=== PATIENT | female | born 1955 | race Caucasian/White ===

== ENCOUNTER → 2016-11-09 07:28 | Outpatient (CLI) | payer MEDICARE, OTHER | END | disposition home or self-care (01) | LOC: D.RAD 07:28 | DX: R13.10 Dysphagia, unspecified (principal) ==

== ENCOUNTER 2017-01-25 05:05 | Inpatient (IN) | payer MEDICARE, OTHER ==
[2017-01-24 12:09] LABS: HEMATOCRIT 34.2 % (36.0-48.0); HEMOGLOBIN 10.7 g/dL (12-16); MCH 24.1 pg (26.0-34.0); MCHC 31.3 g/dL (31.0-37.0); MEAN PLATELET VOLUME 9.1 fL (7.4-10.4); RBC 4.44 10x6/uL (4.00-5.40); RDW 17.3 % (11.5-14.5); WBC 14.6 10x3/uL (4.8-10.8)
[2017-01-24 12:18] LABS: CALC OSMOLALITY 268 mosm/kg (275-300); CALCIUM 9.5 mg/dL (8.5-10.1); CARBON DIOXIDE 22.8 mmol/L (21.0-32.0); CHLORIDE - SERUM 99 mmol/L (98-107); CREATININE - SERUM 0.8 mg/dL (0.6-1.3); GLUCOSE 94 mg/dL (74-106); POTASSIUM - SERUM 3.6 mmol/L (3.5-5.1); SODIUM 135 mmol/L (136-145); UREA NITROGEN 9 mg/dL (7-18); eGFR NON AFRICAN AMERICAN 77 mL/min (90-120)
[~2017-01-25] VITALS: Ht 162.6 cm; Wt 73.2 kg
--- NOTE | ~2017-01-25 | OP ---
PATIENT NAME: WILI CHANG MEDICAL RECORD: [id number] :55 LOCATION:[id number] ADMISSION DATE:01/25/17 SURGEON: FEDERICO MERCADO MD DATE OF OPERATION: 01/25/2017 PREOPERATIVE DIAGNOSES: 1. Type 3 paraesophageal hernia 2. Intractable gastroesophageal reflux. POSTOPERATIVE DIAGNOSES: 1. Type 3 paraesophageal hernia 2. Intractable gastroesophageal reflux. PROCEDURES: 1. Laparoscopic type 3 paraesophageal hernia repair. 2. Laparoscopic Moose fundoplication. SURGEON: Federcio Mercado MD. NETWORK CONSULTANT: RANCHO Houser MD. BLOOD LOSS: Less than 25 cc. ANESTHESIA: General. COMPLICATIONS: None. The risks, possible complications and alternatives to procedure were explained to the patient. She elects to proceed. OPERATIVE COURSE: The patient was conveyed to the operating room electively on 01/25/2017. General anesthesia was induced by anesthesia staff. The abdomen was sterilely prepped and draped. An incision was accomplished within the umbilicus. Utilizing the Optiport device, I entered the peritoneal cavity. Under direct internal vision utilizing a television camera, a 5-mm Juan retractor was placed cephalad. It was placed under the left lateral segment of the liver. I used it to lift the left lateral segment of the liver. An 11-mm trocar was inserted to the left of the umbilicus. A 5-mm trocar was inserted far laterally in the right upper quadrant. Two 5-mm trocars were inserted in the left side of the abdomen. We delivered the stomach from up in the chest. The patient had about 1/2 of her stomach up in the chest. We took down the phrenicoesophageal ligament. This was an extensive dissection up into the mediastinum. We dissected up anterior to the aorta and circumferentially around the esophagus. We did this while lifting up the left atrium. Once I was satisfied with the amount of the esophagus we freed up and the amount of stomach we had been able to pulled down at the abdominal compartment without it retracting up into the chest, we performed the paraesophageal hernia repair. There was still some phrenicoesophageal ligamentous attachments that remained. These were taken down with the Harmonic scalpel. We took down the short gastrics of the upper portion of the stomach as well with the Harmonic scalpel. We excised some adipose tissue as well with Harmonic scalpel. At no time was there any apparent full thickness injury to the stomach. OPERATIVE REPORT [id number] CHARLENEWILI ARZATE While elevating the esophagus, the esophageal repair was carried out with a Stratafix suture utilizing intracorporeal suturing technique. We then completed the Moose fundoplication by bringing the fundus around the back of the esophagus and suturing stomach to esophagus to stomach and then several more sutures were from the fundus of the stomach to the fundus of the stomach anterior to the esophagus. It was a nice floppy wrap. There was no retraction up into the mediastinum. This suturing of the fundoplication was performed with a Prolene Stratafix suture. The 11-mm and 12-mm trocar sites were closed after the Juan retractor was removed. The closure was consistent with 0 Vicryl sutures and the Eddie-Lyndsey suture closure device. All trocars were removed and the abdomen desufflated. A local anesthetic has been used to infiltrate the skin and subcutaneous tissues around the trocar sites. The patient had a good bit of subcutaneous emphysema. Skin incisions were all closed with interrupted intracuticular 3-0 Vicryls except at the umbilicus where the skin was closed with interrupted 4-0 Vicryl Rapide sutures. The patient was then conveyed to post-anesthesia care unit. She still had a good bit of subcutaneous emphysema and I think this will resolve in the next couple of hours. TRANSINT:[id number] Voice Confirmation ID: [id number] DOCUMENT ID: [id number] FEDERICO MERCADO MD CC: [id number] DICTATION DATE: 01/25/172013 COMMUNITY HEALTH ADVISOR: 01/26/17 0151 ADM IN [facility] [address] [place] [address]
--- NOTE | ~2017-01-25 | DS ---
PATIENT:WILI CHANG :55 MEDICAL RECORD: [id number] DISCHARGE SUMMARY ADMISSION DATE: 01/25/17 DISCHARGE DATE: 01/26/17 PREOPERATIVE DIAGNOSES: 1. Grade III paraesophageal hernia. 2. Intractable gastroesophageal reflux disease. PROCEDURE: 1. Laparoscopic third degree paraesophageal hernia repair. 2. Laparoscopic Moose fundoplication. HOSPITAL COURSE: The patient underwent the above operative procedure. Postoperatively, her pain was controlled with a patient-controlled analgesia pump. She was able to tolerate some clear liquids. Discharge instructions were given to the patient verbally by me. She is being dismissed home on Pelican as well as Zofran and she can wear the scopolamine patch for 1 additional day. I will see her in the office in 2-3 weeks. TRANSINT:[id number] Voice Confirmation ID: [id number] DOCUMENT ID: [id number] FEDERICO MERCADO MD CC: [id number] DICTATION DATE: 01/26/17 1615 SH[facility]POINT ADMIN: 01/27/17 0316 DIS IN 01/26/17 [facility] [address] [place] [address]
[~2017-01-25 05:05] MED LIST: ACTIVELLA 1 MG-1 TAB PO; COZAAR50 MG PO; NORVASC10 MG PO; OMEPRAZOLE40 MG PO; PLAQUENIL200 MG PO; SALAGEN5 MG PO; SKELAXIN800 MG PO
[2017-01-25 11:41] VITALS: BP 167/97; BMI 27.7
[2017-01-25 20:17] VITALS: BP 150/80
[2017-01-25 20:32] VITALS: BP 144/81
[2017-01-25 20:47] VITALS: BP 135/69
[2017-01-25 21:02] VITALS: BP 132/65
[2017-01-25 21:32] VITALS: BP 115/64
[2017-01-26 04:00] VITALS: BP 143/85
[2017-01-26 07:45] VITALS: Ht 162.6 cm; Wt 73.2 kg
--- NOTE | 2017-01-26 07:50 | NUR ---
ASSESSMENT COMPLETE. IV TO L WRIST PATENT. NS INFUSING AT 100 CC/HR AND ZOFRAN INFUSING AT 4.7 CC/HR VIA PUMP. LAP SITES X 6 WITH STERI STRIPS INTACT. O2 2L NC IN USE. FAMILY AT BEDSIDE.
[2017-01-26 07:59] VITALS: BP 156/76
--- NOTE | 2017-01-26 08:01 | OP ---
PATIENT NAME: WILI DUMONT MEDICAL RECORD: [id number] :55 LOCATION:[id number] ADMISSION DATE:01/25/17 SURGEON: LESLEE HOPPER MD DATE OF OPERATION: 01/25/2017 SURGEON: Dr. Geovanni Alves. UTILITY REPAIRER: Dr. Leslee Hopper. PREOPERATIVE DIAGNOSIS: Grade III paraesophageal hernia. POSTOPERATIVE DIAGNOSIS: Grade III paraesophageal hernia. PROCEDURE PERFORMED: Laparoscopic paraesophageal hernia repair with laparoscopic Moose fundoplication. OPERATIVE COURSE: I assisted Dr. Alves during the procedure due to complexity of the case. My direct responsibility is for reduction of the paraesophageal hernia. I helped in the dissection of the hernia sac, the closure of the hiatal hernia as well as the closure of the Moose fundoplication specifically. For all further details of the operative note, please see Dr. Alves's operative report for Wili Dumont, . TRANSINT:[id number] Voice Confirmation ID: [id number] DOCUMENT ID: [id number] LESLEE HOPPER MD at 0801 CC: [id number] DICTATION DATE: 01/25/17 1906 MACHINE TRY OUT SETTER: 01/26/17 0100 ADM IN [facility] [id number] [place] [address]
--- NOTE | 2017-01-26 08:24 | NUR ---
OFF FLOOR TO XRAY VIA WC.
--- NOTE | 2017-01-26 11:00 | NUR ---
RESTING QUIETLY IN BED WITH EYES CLOSED. RESP EVEN,NONLABORED.
[2017-01-26 11:46] VITALS: BP 137/77
--- NOTE | 2017-01-26 13:00 | NUR ---
AMBULATED AROUND NURSING UNIT. SITTING UP IN CHAIR. FAMILY AT BEDSIDE.
--- NOTE | 2017-01-26 15:02 | NUR ---
CONTINUES SITTING UP IN CHAIR. RESTING QUIETLY WITH EYES CLOSED. RESP EVEN,NONLABORED.
[2017-01-26] MEDS ORDERED: HYDROCODON-ACE1 EAC7 PO (16:09)
[2017-01-26] MEDS ORDERED: ZOFRAN ODT4 MG/UDTAB PO (16:10)
--- NOTE | 2017-01-26 16:30 | NUR ---
IV REMOVED. CATHETER TIP INTACT. DISCHARGE TEACHING GIVEN TO PATIENT AND . SCRIPTS FOR NORCO AND ZOFRAN GIVEN TO PATIENT.
--- NOTE | 2017-01-26 16:45 | NUR ---
DC'D HOME WITH . ESCORTED TO VEHICLE BY RACE RELATIONS PROFESSOR WITH BELONGINGS.
== END 2017-01-26 16:45 | disposition home or self-care (01) | DRG 328 ==
LOC: D.OPS 05:05 → D.PAN 10:10 → D.OPS 10:10 → D.PAN 11:30 → D.OPS 13:30 → D.MS 19:23 → D.SDCHOLD 19:23 → D.MS 19:59
PROVIDERS: Anesthesiology; ADMIT Surgery
PROC: 0BQR4ZZ (ICD-10-PCS; 2017-01-25)
PROC: 0DV44ZZ Restriction of Esophagogastric Junction, Percutaneous Endoscopic Approach (ICD-10-PCS; principal; 2017-01-25 13:30)
PROC: 0BQS4ZZ (ICD-10-PCS; 2017-01-25 13:30)
DX: K44.9 Diaphragmatic hernia without obstruction or gangrene (principal); K21.9 Gastro-esophageal reflux disease without esophagitis; T81.82XA Emphysema (subcutaneous) resulting from a procedure, initial encounter

== ENCOUNTER → 2018-03-29 16:42 | Outpatient (CLI) | payer MEDICARE, OTHER ==
[2017-01-26 07:45] VITALS: BMI 27.7
[~2018-03-29 16:42] MED LIST changes: +HYDROCODON-ACE1 EAC7 PO; +ZOFRAN ODT4 MG/UDTAB PO
== END | disposition home or self-care (01) ==
LOC: D.MAMMO 03-06 09:15
DX: Z12.31 Encounter for screening mammogram for malignant neoplasm of breast (principal)